=== PATIENT | male | born 1970 | race African-American/Black ===

== ENCOUNTER 2020-07-06 13:36 | Emergency (ER) | payer MEDICAID ==
[~2020-07-06] VITALS: Wt 85.3 kg
== END 2020-07-06 17:00 | disposition left against medical advice (07) ==
LOC: ED 13:36
DX: H92.01 Otalgia, right ear (principal); R10.9 Unspecified abdominal pain; Z53.21 Procedure and treatment not carried out due to patient leaving prior to being seen by health care provider